=== PATIENT | female | born 1985 | race Caucasian/White ===

== ENCOUNTER 2021-01-24 16:25 | Emergency (ER) | payer OTHER ==
[~2021-01-24] VITALS: Ht 167.6 cm; Wt 74.8 kg
[2021-01-24] MEDS ORDERED: cloNIDine HCL 0.1 MG TAB PO ONE (17:30)
[2021-01-24 18:02] LABS: Basophils # (auto) 0.1 10 ^3/uL (0-0.2); Basophils % (auto) 1.1 % (0.0-2.0); Eosinophils # (auto) 0 10 ^3/uL (0-0.8); Eosinophils % (auto) 0.1 % (0.0-7.0); Hemoglobin 11.1 g/dL (12.2-16.2); Lymphocytes # (auto) 0.4 10 ^3/uL (0.4-5.4); Mean Corpuscular Volume 106.9 fL (80.0-100.0); Monocytes # (auto) 0.2 10 ^3/uL (0-1.3); Neutrophils # (auto) 4.2 10 ^3/uL (1.6-8.6); Nucleated Red Blood Cells % 0.1 %; White Blood Cell 4.9 10^3/uL (4.4-10.8)
[2021-01-24 18:04] LABS: Hematocrit 31.7 % (36.0-46.0); Lymphocytes % (auto) 8.6 % (10.0-50.0); Mean Corpuscular Hemoglobin 37.3 pg (28.0-32.0); Mean Corpuscular Hgb Conc. 34.9 g/dL (32.0-36.0); Monocytes % (auto) 4.2 % (0.0-12.0); Platelet Count (auto) 72 10^3/uL (140-450); Red Blood Cells 2.97 10^6/uL (4.0-5.20); Red Cell Distribution Width 16.2 % (11.8-14.3)
[2021-01-24 18:19] LABS: Albumin 3.8 g/dL (3.4-5.0); Calcium 8.4 mg/dL (8.5-10.1)
[2021-01-24 18:23] LABS: BUN/Creatinine Ratio 7.3; Total Protein 8.2 g/dL (6.4-8.2)
[2021-01-24] MEDS ORDERED: ONDANSETRON HCL 4 MG/2 ML VIAL IV ONE ×2 (18:45→19:15)
[2021-01-24] MEDS ORDERED: LABETALOL HCL 5 MG/ML 4ML SYRINGE IV ONE (19:15)
[2021-01-24 19:20] LABS: Potassium 2.8 mmol/L (3.5-5.1)
[2021-01-24] MEDS ORDERED: POTASSIUM CHL 20MEQ/100ML 100 ML IV ONE (19:30)
[2021-01-24] MEDS ORDERED: POTASSIUM EFFERVESENT TAB 25 MEQ PO ONE (19:30)
[2021-01-24] MEDS ORDERED: levETIRAcetam 500 MG/5ML INJ IV ONE (21:03)
[2021-01-24 21:33] VITALS: BP 127/97
== END 2021-01-24 22:41 | disposition home or self-care (01) ==
LOC: EDSEX 16:25 → EDBD 16:25 → ER 16:25
DX: G40.89 Other seizures (principal); E87.6 Hypokalemia; I16.0 Hypertensive urgency; R94.5 Abnormal results of liver function studies
CPT/HCPCS: 36415; 70450; 76705; 80053; 80320; 84484; 84702; 85025; 96365; 96366; 96368; 96375; 96376; 99285; J1953; J2405; J3480; J3490; J7060